=== PATIENT | female | born 1950 | race Caucasian/White ===

== ENCOUNTER → 2019-07-09 09:10 | Outpatient (CLI) | payer OTHER, SELFPAY ==
--- NOTE | ~2019-07-09 | XR_ITS ---
XR chest 2V DATE: 07/09/2019 09:37 INDICATION: Pulmonary nodule TECHNIQUE: PA and lateral views COMPARISON: 11/25/2015 2 view chest FINDINGS: Moderate bilateral hyperinflation. No pulmonary infiltrate or consolidation, pleural effusi on or pulmonary vascular congestion or pneumothorax is detected. Normal heart size. Small hiatal hernia. IMPRESSION: Moderate hyperinflation; no active cardiopulmonary disease or significant change since Reviewed, dictated and finalized at location A. RN TO VENDOR IMPRESSION: Moderate hyperinflation; no active cardiopulmonary disease or signi ficant change since 11/25/2015
== END ==
PROVIDERS: PCP Emergency Medicine; Visit Provider Emergency Medicine
DX: R91.1 Solitary pulmonary nodule (principal); R91.8 Other nonspecific abnormal finding of lung field
CPT/HCPCS: 71046

== ENCOUNTER → 2020-02-04 14:53 | Outpatient (CLI) | payer OTHER, SELFPAY ==
--- NOTE | ~2020-02-04 | MM_ITS ---
EXAMINATION: MM screening benjamin BI w melita HISTORY: Screening mammogram, family history of breast cancer in her daughter. TECHNIQUE: Craniocaudal and mediolateral oblique 3-D tomosynthesis images were obtained and synthetic 2-D images were generated. CAD analysis was submitted and interpreted. COMPARISON: 12/08/2018, 11/29/2016, 11/28/2015 BREAST PARENCHYMAL COMPOSITION: There are scattered areas of fibroglandular density. FINDINGS: There is no evidence of suspicious mass, calcification, or architectural distortion to sugg est malignancy in either breast. There has been no suspicious interval change. IMPRESSION: 1. No mammographic evidence of malignancy. 2. Recommend routine screening mammography in one year. BI-RADS Category 1: Negative Reviewed, dictated and finalized at location A.
== END ==
PROVIDERS: PCP Emergency Medicine; Visit Provider Emergency Medicine
DX: Z12.31 Encounter for screening mammogram for malignant neoplasm of breast (principal)
CPT/HCPCS: 77063; 77067

== ENCOUNTER → 2020-08-04 12:28 | Outpatient (CLI) | payer OTHER, SELFPAY ==
--- NOTE | ~2020-08-04 | DEXA_ITS ---
Bone Density Report Name: Fay Ovalle Age: 69 Sex: Female Ethnicity: White Date of : 1950 Indication: osteopenia; monitoring treatment; parental hip fracture; height loss; postmenopausal Referring Provider: LEONARDA MARCUS Study: Bone densitometry was performed. Exam Date: August 04, 2020 Accession number: [id number] Bone Density: Region BMD T-score Z-score Classification AP Spine (L1-L4) 0.866 -1.6 0.6 Osteopenia Femoral Neck (Left) 0.572 -2.5 -0.6 Osteoporosis Total Hip (Left) 0.725 -1.8 -0.2 Osteopenia Femoral Neck (Right) 0.591 -2.3 -0.4 Osteopenia Total Hip (Right) 0.667 -2.3 -0.7 Osteopenia Total Hip Mean 0.696 -2.1 -0.5 Osteopenia World Health Organization criteria for BMD impression classify patients as: Normal (T-score at or above -1.0), Osteopenia (T-score between -1.0 and -2.5), or Osteoporosis (T-score at or below -2.5). 10-year Fracture Risk: FRAX not reported because: Some T-score for Spine Total or Hip Total or Femoral Neck at or below -2.5 Treated for osteoporosis Previous Exams: Region Exam Age BMD T-score BMD Change BMD Change Date g/cm2 vs Baseline vs Previous AP Spine(L1-L4) 08/04/2020 69 0.866 -1.6 0.091* 0.053* 04/15/2018 67 0.813 -2.1 0.038* 0.038* 04/13/2016 65 0.775 -2.5 Total Hip(Left) 08/04/2020 69 0.725 -1.8 0.035* 0.037* 04/15/2018 67 0.688 -2.1 -0.003 -0.003 04/13/2016 65 0.690 -2.1 Total Hip(Right) 08/04/2020 69 0.667 -2.3 0.016 0.021 04/15/2018 67 0.646 -2.4 -0.005 -0.005 04/13/2016 65 0.650 -2.4 *Denotes significance at 95% confidence level, LSC for AP Spine = 0.022 g/cm2, LSC for Total Hip = 0.027 g/cm2 Clinical Information Provided by Patient: Parent has had a hip fracture Is being treated for osteoporosis Has used the following medications: Fosamax (i.e. alendronate), Vitamin D, Calcium, MTV Patient maximum height was 60 Menopause Age: 47 Drinks caffeinated beverages Onset of menses at age 10 Number of children 6 Impression: The patient has osteoporosis, based on the Left Femoral Neck T-score. The patient has risk factors, including: parental hip fracture. No significant bone loss was observed. Discussion: PATIENT UNDER TREATMENT WITH NO SIGNIFICANT BMD LOSS SINCE LAST EXAM. In an untreated patient, BMD typically declines with age. A lack of decl
== END ==
PROVIDERS: PCP Emergency Medicine; Visit Provider Emergency Medicine
DX: M81.0 Age-related osteoporosis without current pathological fracture (principal); M85.89 Other specified disorders of bone density and structure, multiple sites
CPT/HCPCS: 77080

== ENCOUNTER → 2020-10-12 10:48 | Outpatient (CLI) | payer OTHER, SELFPAY ==
--- NOTE | ~2020-10-12 | XR_ITS ---
EXAMINATION: XR shoulder RT min 2V EXAM DATE: 10/12/2020 11:14 INDICATION: Right shoulder pain, intermittent. States ran into door frame a few weeks ago. TECHNIQUE: The following right shoulder projections obtained: frontal projection with internal rotati on, frontal projection with external rotation, Grashey, and axillary (4+ views). There is no prior s tudy for comparison. FINDINGS: No evidence of right shoulder rotator cuff calcific tendinosis. There is moderate glenoh umeral, mild acromioclavicular joint primary osteoarthritis. There are no acute fractures or dislocat ions identified. There is no subcutaneous gas. The soft tissue is unremarkable. There are no radi opaque foreign bodies. IMPRESSION: Moderate right glenohumeral osteoarthritis. Reviewed, dictated and finalized at location B.
== END ==
PROVIDERS: PCP Emergency Medicine; Visit Provider Emergency Medicine
DX: M25.511 Pain in right shoulder (principal); M19.011 Primary osteoarthritis, right shoulder
CPT/HCPCS: 73030

== ENCOUNTER 2021-03-29 17:49 | Emergency (ER) | payer OTHER, SELFPAY ==
--- NOTE | ~2021-03-29 | XR_ITS ---
EXAMINATION: XR foot RT min 3V DATE: 03/29/2021 18:01 INDICATION: Right foot pain TECHNIQUE: Dorsoplantar, lateral, and 2 oblique views of the right foot were obtained. COMPARISON: None. FINDINGS: There is no fracture, dislocation, or subluxation. There is mild osteoarthritis of multiple interphalangeal joints. The soft tissues are unremarkable. Posterior and plantar calcaneal enthesoph ytes are noted. IMPRESSION: 1. No acute osseous abnormality. Reviewed, dictated and finalized at location A.
--- NOTE | 2021-03-29 17:51 | ED.LOWEXIN ---
HPI - Extremity Injury (Lower) General Chief Complaint: Extremity Injury, Lower Stated Complaint: INJURED R FOOT Time Seen by Provider: 03/29/21 17:51 Source: patient, family and RN notes reviewed History of Present Illness HPI Narrative: Patient is a 70-year-old female who presents the urgent care with her spouse with complaints of right foot pain. Patient states that approximately a week and a half ago she stepped off a curb, twisting her right foot. Patient states that weightbearing exacerbates her pain but she has been walking the last week and a half on the foot. Patient denies of other injuries from the incident. States that she has been taking ibuprofen intermittently for the pain. No other acute complaints. No acute distress noted. Patient and spouse aware of the plan of care. Some parts of this dictation were generated by voice recognition software and may contain typographical and/or grammatical inaccuracies. Related Data Home Medications Medication Instructions Recorded Confirmed aspirin 325 mg tablet 325 mg PO DAILY 07/20/19 cholecalciferol (vitamin D3) 50 2,000 unit PO DAILY 07/20/19 mcg (2,000 unit) tablet loratadine 5 mg-pseudoephedrine ER 1 tablet PO Q12H 07/20/19 120 mg tablet,extended release,12hr multivitamin 1 tablet PO .COMPLEX 07/20/19 Allergies Allergy/AdvReac Type Severity Reaction Status Date / Time codeine Allergy Unknown unknown Verified 12/14/20 10:54 iodine Allergy Unknown unknown Verified 12/14/20 10:54 Review of Systems Review of Systems: CONSTITUTIONAL: Denies fever, chills, or sweats. EYES: Denies visual changes, redness, or discharge. ENT: Denies rhinorrhea, congestion, sore throat, or otalgia. CARDIOVASCULAR: Denies chest pain, palpitations, or edema. RESPIRATORY: Denies cough or dyspnea. GASTROINTESTINAL: Denies abdominal pain, nausea, vomiting, or diarrhea. GENITOURINARY: Denies dysuria or hematuria. SKIN: Denies rash or itching. MUSCULOSKELETAL: Reports of right foot pain due to injury NEUROLOGIC: Denies headache, numbness, or weakness. All other systems reviewed are negative, except as documented in HPI. [facility] Past Medical History Medical History (Updated 03/29/21 @ 18:11 by SOPHIE Hansen) HLD (hyperlipidemia) Hypertension Osteoporosis Family History Family History Mother Family history of chronic obstructive pulmonary disease, Onset Age: 87 Family history of dementia, Onset Age: 87 Sibling Family history of chronic obstructive pulmonary disease Social History Social History Smoking status: Never smoker Alcohol intake: never Comments At the time of my signature, I reviewed and agree with the nursing past medical, surgical, social, and family history. There is no relevant family history pertinent to the patient complaint. Exam Narrative: GENERAL: This is a well-nourished, well-developed patient, in no apparent distress. HEAD: normocephalic, atraumatic. EYES: PERRL. Sclera clear/white. Vision is grossly intact. EARS: External ears normal NOSE: External nose normal with no obvious nasal discharge, nares without redness, no rhinorrhea. THROAT: Mucous membranes moist NECK: Neck supple CARDIOVASCULAR: Regular rate and rhythm without murmurs, gallops, or rubs. RESPIRATORY: Clear to auscultation. Breath sounds equal bilaterally. No wheezes, rales, or rhonchi. SKIN: warm, intact with no suspicious lesions or rash, good texture and turgor. NEURO: awake, alert, and oriented to person, place and time. There were no obvious focal neurologic abnormalities. EXTREMITIES: No obvious deformity noted to the right foot. No evidence of erythema, edema or ecchymosis. Positive strong right pedal pulse with capillary refill less than 2 seconds. Range of motion to right lower extremity within normal limits. Pain exacerbated with weightbe
[2021-03-29 18:12] VITALS: BP 182/92; PULSE 96; RESP 16; TEMP 36.3; O2SAT 99
== END 2021-03-29 18:16 | disposition home or self-care (01) ==
PROVIDERS: Emergency Provider Nurse Practitioner Family; PCP Emergency Medicine
DX: M79.671 Pain in right foot (principal); E78.5 Hyperlipidemia, unspecified; I10 Essential (primary) hypertension; M81.0 Age-related osteoporosis without current pathological fracture; Z79.82 Long term (current) use of aspirin
CPT/HCPCS: 73630; 99213; G0463

== ENCOUNTER → 2021-04-13 15:04 | Outpatient (CLI) | payer OTHER, SELFPAY ==
--- NOTE | ~2021-04-13 | MM_ITS ---
EXAMINATION: MM screening benjamin BI w melita HISTORY: Screening TECHNIQUE: Craniocaudal and mediolateral oblique 3-D tomosynthesis images were obtained and synthetic 2-D images were generated. CAD analysis was submitted and interpreted. COMPARISON: Comparison to multiple prior studies sequentially, with oldest reviewed study dated 11/27. BREAST PARENCHYMAL COMPOSITION: There are scattered areas of fibroglandular density. FINDINGS: There is no evidence of suspicious mass, calcification, or architectural distortion to sugg est malignancy in either breast. There has been no suspicious interval change. IMPRESSION: 1. No mammographic evidence of malignancy. 2. Recommend routine screening mammography in one year. BI-RADS Category 1: Negative Reviewed, dictated and finalized at location A.
== END ==
PROVIDERS: PCP Emergency Medicine; Visit Provider Emergency Medicine
DX: Z12.31 Encounter for screening mammogram for malignant neoplasm of breast (principal)
CPT/HCPCS: 77063; 77067

== ENCOUNTER 2021-08-01 14:12 | Outpatient (CLI) | payer OTHER, SELFPAY ==
--- NOTE | ~2021-08-01 | US_ITS ---
EXAMINATION:US venous doppler LE RT INDICATION:Right calf pain for 2 weeks TECHNIQUE: Multiple grayscale, color flow and Doppler images of the right lower extremity deep venous systems were obtained and reviewed. COMPARISON:No prior studies for comparison. FINDINGS: The common femoral, superficial femoral and popliteal veins demonstrate normal respiratory variation, augmentation and compressibility. Color flow is also seen within the posterior tibial, pe roneal, greater saphenous and profunda veins. IMPRESSION: 1: No lower extremity deep venous thrombosis. Reviewed, dictated and finalized at location B. RGLASS PRODUCT TESTER
--- NOTE | ~2021-08-01 | XR_ITS ---
EXAMINATION: XR knee RT 2V EXAM DATE: 08/01/2021 14:46 INDICATION: pain and swelling in knee, reports injury 10 yrs ago . TECHNIQUE: Frontal and lateral projections of the right knee. There is no prior study for compariso n. FINDINGS: Small right patellar enthesopathy. No sizable joint effusion. There are no acute fractures or dislocations identified. There is no subcutaneous gas. The soft tissue is unremarkable. There are no radiopaque foreign bodies. Joint spaces are maintained. IMPRESSION: Small suprapatellar enthesopathy. Otherwise unremarkable exam. Reviewed, dictated and finalized at location A. CUTTER
== END 2021-08-01 14:13 | disposition home or self-care (01) ==
PROVIDERS: PCP Emergency Medicine; Visit Provider Emergency Medicine
DX: M79.661 Pain in right lower leg (principal); M76.9 Unspecified enthesopathy, lower limb, excluding foot
CPT/HCPCS: 73560; 93971

== ENCOUNTER 2021-10-10 15:50 | Emergency (ER) | payer OTHER, SELFPAY ==
--- NOTE | ~2021-10-10 | XR_ITS ---
X EXAM: XR hand LT min 3V HISTORY: PAIN ulnar side Lt hand, prox 5th metacarpal;onset x 1.5 wks COMPARISON: None available FINDINGS: Decreased mineralization. Subtle transverse sclerosis in the distal radius. No lytic or bl astic lesion. Scattered degenerative changes, moderate at the radiocarpal joint. No erosion or perios teal change. Soft tissues within normal limits. IMPRESSION: Possible nondisplaced distal left radial fracture, correlate with point tenderness. No other acute osseous finding in the left hand. Reviewed, dictated and finalized at location K. IMPRESSION: Possible nondisplaced distal left radial fracture, correlate with point tendern ess. No other acute osseous finding in the left hand.
[2021-10-10 15:55] VITALS: BP 149/77; PULSE 91; RESP 16; TEMP 36.5; O2SAT 99
--- NOTE | 2021-10-10 15:55 | ED.UPPEXIN ---
HPI - Extremity Injury (Upper) General Chief Complaint: Extremity Injury, Upper Stated Complaint: INJURED L HAND Time Seen by Provider: 10/10/21 15:55 Source: patient and RN notes reviewed Mode of arrival: ambulatory Limitations: no limitations History of Present Illness HPI narrative: 71-year-old female presents to the [facility] with complaints of left hand pain. Patient states approximately a week and a half ago she was pounding on a butter knife and the counter to break apart some meat. Bruising swelling noted to the fifth metacarpal. Full range of motion. Capillary refill under 2 seconds, sensation intact 5 fingers. No snuffbox tenderness. No radial or ulnar tenderness. Tenderness just along the fifth metacarpal Related Data Home Medications Medication Instructions Recorded Confirmed aspirin 325 mg tablet 325 mg PO DAILY 07/20/19 10/10/21 cholecalciferol (vitamin D3) 50 2,000 unit PO DAILY 07/20/19 10/10/21 mcg (2,000 unit) tablet loratadine 5 mg-pseudoephedrine ER 1 tablet PO Q12H 07/20/19 10/10/21 120 mg tablet,extended release,12hr multivitamin 1 tablet PO .COMPLEX 07/20/19 10/10/21 alendronate 70 mg PO DAILY 10/10/21 10/10/21 Allergies Allergy/AdvReac Type Severity Reaction Status Date / Time codeine Allergy Unknown unknown Verified 10/10/21 15:59 iodine Allergy Unknown unknown Verified 10/10/21 15:59 Review of Systems Review of Systems: All systems reviewed & are unremarkable except as noted in HPI and below Constitutional: Constitutional: Reports no additional constitutional complaints, Denies chills and Denies fever(s) Eyes: Eyes: Reports no additional eye complaints ENT: Reports system reviewed and no additional complaints, except as documented Cardiovascular: Cardiovascular: Reports no additional cardiovascular complaints Respiratory: Respiratory: Reports no additional respiratory complaints Gastrointestinal: Gastrointestinal: Reports no additional gastrointestinal complaints Musculoskeletal: Musculoskeletal: Reports as per HPI Comments: Left fifth metacarpal pain and bruising Integumentary/Breasts: Skin/Breast: Reports system reviewed and no additional complaints, except as docu Neurologic: Reports system reviewed and no additional complaints, except as documented Psychiatric: Psychiatric: Reports no additional psychiatric complaints Allergic/Immunologic: Allergic/Immunologic: Reports no additional allergic/immunologic complaints [facility] Past Medical History Medical History Acquired stenosis of external ear canal, bilateral Acute pain of left hip Benign paroxysmal positional vertigo due to bilateral vestibular disorder Body mass index [BMI] 26.0-26.9, adult (03/25/17) Dental abscess Excessive cerumen in both ear canals GERD without esophagitis HLD (hyperlipidemia) Hyperglycemia Hypertension Lung granuloma Osteoporosis Post-menopause Pulmonary nodule Rash Tachycardia, paroxysmal Unspecified injury of right wrist, hand and finger(s), initial encounter Wrist pain, left Yeast infection Family History Family History Mother Family history of chronic obstructive pulmonary disease, Onset Age: 87 Family history of dementia, Onset Age: 87 Sibling Family history of chronic obstructive pulmonary disease Social History Social History Smoking status: Never smoker Alcohol intake: never Comments At the time of my signature, I reviewed and agree with the nursing past medical, surgical, social, and family history. There is no relevant family history pertinent to the patient complaint. Exam Const: General: healthy appearing, no acute distress and alert Nutritional Appearance: well nourished Orientation/consciousness: patient oriented x3 Limitations: no limitations HENMT: Head: normal to inspection Ear
== END 2021-10-10 16:28 | disposition home or self-care (01) ==
PROVIDERS: Emergency Provider Nurse Practitioner; PCP Emergency Medicine
DX: S60.222A Contusion of left hand, initial encounter (principal); I10 Essential (primary) hypertension; Z79.82 Long term (current) use of aspirin; E78.5 Hyperlipidemia, unspecified; W22.09XA Striking against other stationary object, initial encounter
CPT/HCPCS: 73130; 99213; G0463

== ENCOUNTER → 2022-04-18 13:32 | Outpatient (CLI) | payer OTHER, SELFPAY ==
--- NOTE | ~2022-04-18 | XR_ITS ---
EXAMINATION: [id number] INDICATION: Left-sided rib pain after fall TECHNIQUE: A frontal view of the chest and 3 views of the left ribs were obtained. COMPARISON: 07/09/2019 FINDINGS: The lungs are free of acute opacities. No pleural effusion or pneumothorax. The cardiomedia stinal silhouette is normal.. There are nondisplaced fractures at the anterolateral aspects of the le ft ninth and 10th ribs. IMPRESSION: 1. Nondisplaced fractures at the anterolateral aspects of the left ninth and 10th ribs. 2. No acute cardiopulmonary abnormality. Reviewed, dictated and finalized at location B. RY MACHINE MECHANIC IMPRESSION: 1. Nondisplaced fractures at the anterolateral aspects of the left ninth and 10 th ribs. 2. No acute cardiopulmonary abnormality.
== END ==
PROVIDERS: PCP Emergency Medicine; Visit Provider Emergency Medicine
DX: R07.81 Pleurodynia (principal); S22.42XA Multiple fractures of ribs, left side, initial encounter for closed fracture
CPT/HCPCS: 71101

== ENCOUNTER 2022-08-11 08:44 | Emergency (ER) | payer OTHER, SELFPAY ==
--- NOTE | ~2022-08-11 | XR_ITS ---
EXAMINATION: XR chest 2V DATE: 08/11/2022 09:23 INDICATION: Shortness of breath. TECHNIQUE: Frontal and lateral views of the chest were obtained. COMPARISON: Chest 2 views 07/09/2019, chest CT 01/02/2006 FINDINGS: There is mild atelectasis at left lung base. No pleural effusion or pneumothorax. The heart size is normal. Calcified mediastinal lymph nodes are consistent with old granulomatous disease. The re is a small hiatal hernia. IMPRESSION: 1. Mild atelectasis at left lung base. 2. Small hiatal hernia. Reviewed, dictated and finalized at location A. UNLOADER
--- NOTE | 2022-08-11 08:53 | ED.URI ---
HPI - URI/Sore Throat General Chief Complaint: Upper Respiratory Infection Stated Complaint: CONGESTION Time Seen by Provider: 08/11/22 09:08 Source: patient and RN notes reviewed Mode of arrival: ambulatory Limitations: no limitations History of Present Illness HPI Narrative: 71-year-old female presents concern for 2 week history chest congestion, cough, situational shortness of breath, nasal congestion, rhinorrhea. Reports she has been taking Mucinex and ?cold pills? without relief. Patient does not have history of COPD, emphysema, tobacco use, asthma. She took a negative COVID test at the beginning of her symptoms. She denies known sick contacts MD elicited complaint: cough and nasal congestion Related Data Home Medications Medication Instructions Recorded Confirmed aspirin 325 mg tablet 325 mg PO DAILY 07/20/19 10/10/21 cholecalciferol (vitamin D3) 50 2,000 unit PO DAILY 07/20/19 10/10/21 mcg (2,000 unit) tablet multivitamin (Once Daily tablet) 1 tablet PO .COMPLEX 07/20/19 10/10/21 Allergies Allergy/AdvReac Type Severity Reaction Status Date / Time codeine Allergy Unknown unknown Verified 08/11/22 08:56 iodine Allergy Unknown unknown Verified 08/11/22 08:56 Review of Systems Review of Systems: CONSTITUTIONAL: Reports malaise. Denies fever EYES: Denies visual changes, redness, or discharge. ENT: Reports rhinorrhea, congestion. Denies sinus pain, otalgia and sore throat. CARDIOVASCULAR: Denies chest pain, palpitations, or edema. RESPIRATORY: Reports cough, chest congestion, dyspnea. GASTROINTESTINAL: Denies abdominal pain, nausea, vomiting, diarrhea SKIN: Denies rash or itching. MUSCULOSKELETAL: Reports myalgia. NEUROLOGIC: Denies headache. All systems reviewed & are unremarkable except as noted in HPI and below PMFSH Past Medical History Medical History Acquired stenosis of external ear canal, bilateral Acute pain of left hip Benign paroxysmal positional vertigo due to bilateral vestibular disorder Body mass index [BMI] 26.0-26.9, adult (03/25/17) Dental abscess Excessive cerumen in both ear canals GERD without esophagitis HLD (hyperlipidemia) Hyperglycemia Hypertension Lung granuloma Osteoporosis Post-menopause Pulmonary nodule Rash Tachycardia, paroxysmal Unspecified injury of right wrist, hand and finger(s), initial encounter Wrist pain, left Yeast infection Family History Family History Mother Family history of chronic obstructive pulmonary disease, Onset Age: 87 Family history of dementia, Onset Age: 87 Sibling Family history of chronic obstructive pulmonary disease Social History Social History Smoking status: Never smoker Alcohol intake: never Comments At time of signature, agree with nursing past medical, surgical, social and family history. There is no relevant family history pertinent to the presenting complaint Exam Narrative: GENERAL: Nontoxic-appearing and in no acute distress. HEAD: Normocephalic EYES: PERRLA, conjunctivae clear ENT: Nares clear, turbinates edematous and erythematous, sinus tenderness. Mucous membranes moist. TM pearly hernandez with dull light reflex bilaterally; no tragal tenderness. Oropharynx not erythematous without lesions. Tonsils not enlarged and without exudate, no drooling, no hoarseness, no trismus, uvula midline. NECK: Supple. No lymphadenopathy CHEST: Expiratory wheeze, scattered rhonchi, breath sounds equal. No rales, or stridor. No respiratory distress, speaks in full sentences. HEART: Regular rate and rhythm. No murmur heard. SKIN: Warm, dry, no rash. NEURO: Alert and oriented x3. PSYCH: Normal mood and affect Course Course Emergency Course: Patient is aware of diagnosis, understands and agrees to treatment plan. Anticipatory guidance given. Patient agrees t
[2022-08-11 08:54] VITALS: BP 164/81; PULSE 103; RESP 16; TEMP 36.9; O2SAT 96
[2022-08-11] MEDS: ALBUTEROL SULFATE NEB 2.5 MG/3 ML INH INHALATION (09:24)
[2022-08-11] MEDS: IPRATROPIUM BR 0.02% INH SOLN 0.5 MG/2.5 ML VIAL INHALATION (09:24)
== END 2022-08-11 09:53 | disposition home or self-care (01) ==
PROVIDERS: Emergency Provider Nurse Practitioner; PCP Emergency Medicine
DX: J40 Bronchitis, not specified as acute or chronic (principal); E78.5 Hyperlipidemia, unspecified; I10 Essential (primary) hypertension
CPT/HCPCS: 71046; 94640; 99213; G0463

== ENCOUNTER → 2022-08-17 11:09 | Outpatient (CLI) | payer OTHER, SELFPAY ==
--- NOTE | ~2022-08-17 | XR_ITS ---
Clinical Indication: Upper respiratory infection PA and lateral views of the chest: Comparison: 08/11/2022 Findings: The lungs are clear, without evidence of focal consolidation or pleural effusion. Cardiome diastinal silhouette is within normal limits. Bones and soft tissues are unremarkable. Impression: Normal chest. Reviewed, dictated and finalized at [facility]. RNEY GENERAL Impression: Normal chest.
== END ==
PROVIDERS: PCP Emergency Medicine; Visit Provider Emergency Medicine
DX: J06.9 Acute upper respiratory infection, unspecified (principal)
CPT/HCPCS: 71046

== ENCOUNTER → 2023-01-07 13:05 | Outpatient (CLI) | payer OTHER, SELFPAY ==
--- NOTE | ~2023-01-07 | MM_ITS ---
EXAMINATION: MM screening benjamin BI w melita HISTORY: Screening mammogram TECHNIQUE: Craniocaudal and mediolateral oblique 3-D tomosynthesis images were obtained and synthetic 2-D images were generated. CAD analysis was submitted and interpreted. COMPARISON: 04/2021, 02/04/2020, 12/08/2018 bilateral screening mammogram examinations BREAST PARENCHYMAL COMPOSITION: There are scattered areas of fibroglandular density. FINDINGS: There is no evidence of suspicious mass, calcification, or architectural distortion to sugg est malignancy in either breast. There has been no suspicious interval change. IMPRESSION: 1. No mammographic evidence of malignancy. 2. Recommend routine screening mammography in one year. BI-RADS Category 1: Negative Reviewed, dictated and finalized at location A.
== END ==
PROVIDERS: PCP Emergency Medicine; Visit Provider Emergency Medicine
DX: Z12.31 Encounter for screening mammogram for malignant neoplasm of breast (principal)
CPT/HCPCS: 77063; 77067

== ENCOUNTER → 2023-01-30 09:56 | Outpatient (CLI) | payer OTHER, SELFPAY ==
--- NOTE | ~2023-01-30 | DEXA_ITS ---
Bone Density Report Name: CHARU BOUCHER Age: 72 Sex: Female Ethnicity: White Date of : 1950 Indication: osteopenia; monitoring treatment; parental hip fracture; height loss; postmenopausal Referring Provider: LEONARDA MARCUS Study: Bone densitometry was performed. Exam Date: January 30, 2023 Accession number: [id number] Bone Density: Region BMD T-score Z-score Classification AP Spine (L1-L4) 0.905 -1.3 1.1 Osteopenia Femoral Neck (Left) 0.601 -2.2 -0.2 Osteopenia Total Hip (Left) 0.738 -1.7 0.1 Osteopenia Femoral Neck (Right) 0.577 -2.4 -0.4 Osteopenia Total Hip (Right) 0.667 -2.3 -0.5 Osteopenia Total Hip Mean 0.703 -2.0 -0.2 Osteopenia World Health Organization criteria for BMD impression classify patients as: Normal (T-score at or above -1.0), Osteopenia (T-score between -1.0 and -2.5), or Osteoporosis (T-score at or below -2.5). 10-year Fracture Risk: FRAX not reported because: Treated for osteoporosis Previous Exams: Region Exam Age BMD T-score BMD Change BMD Change Date g/cm2 vs Baseline vs Previous AP Spine(L1-L4) 01/30/2023 72 0.905 -1.3 0.130* 0.039* 08/04/2020 69 0.866 -1.6 0.091* 0.053* 04/15/2018 67 0.813 -2.1 0.038* 0.038* 04/13/2016 65 0.775 -2.5 Total Hip(Left) 01/30/2023 72 0.738 -1.7 0.048* 0.013 08/04/2020 69 0.725 -1.8 0.035* 0.037* 04/15/2018 67 0.688 -2.1 -0.003 -0.003 04/13/2016 65 0.690 -2.1 Total Hip(Right) 01/30/2023 72 0.667 -2.3 0.016 0.000 08/04/2020 69 0.667 -2.3 0.016 0.021 04/15/2018 67 0.646 -2.4 -0.005 -0.005 04/13/2016 65 0.650 -2.4 *Denotes significance at 95% confidence level, LSC for AP Spine = 0.022 g/cm2, LSC for Total Hip = 0.027 g/cm2 Clinical Information Provided by Patient: Parent has had a hip fracture Is being treated for osteoporosis Has used the following medications: Fosamax (i.e. alendronate), Vitamin D, Calcium, MTV Patient maximum height was 60.0 Menopause Age: 47 Drinks caffeinated beverages Onset of menses at age 10 Number of children 6 Impression: The patient has low bone mass, based on the Right Femoral Neck T-score. The patient has risk factors, including: parental hip fracture. No significant bone loss was observed. Discussion: PATIENT UNDER TREATMENT WITH NO S
== END ==
PROVIDERS: PCP Emergency Medicine; Visit Provider Emergency Medicine
DX: M81.0 Age-related osteoporosis without current pathological fracture (principal); M85.89 Other specified disorders of bone density and structure, multiple sites; Z78.0 Asymptomatic menopausal state; E55.9 Vitamin D deficiency, unspecified
CPT/HCPCS: 77080

== ENCOUNTER 2023-02-22 17:18 | Emergency (ER) | payer OTHER, SELFPAY ==
[2023-02-22 17:31] VITALS: BP 164/80; PULSE 92; RESP 16; TEMP 36.6; O2SAT 98
--- NOTE | 2023-02-22 17:50 | ED.EYEPROB ---
HPI - Eye Problem General Chief complaint: Eye Problems Stated complaint: EYE REDNESS Time Seen by Provider: 02/22/23 17:50 Source: patient, RN notes reviewed and old records reviewed Mode of arrival: ambulatory Limitations: no limitations History of Present Illness HPI Narrative: 72 year old female presents to [facility] with complaints of redness to her left eye and watering with increased redness throughout the day. Patient reports discomfort to her eye but denies any sharp pain or any changes in her vision. Patient reports that she called her eye doctor and soonest she could be seen is Saturday. Patient reports that she has had bilateral cataract surgery in the past. Patient's visual acuity without cglasses 20/40 both eyes. . chief complaint: eye redness Onset (ago): hour(s) (this morning) Duration: other (since awakening this morning) Location: left eye Severity scale (1-10): 8 If Pain, Quality: aching Treatments Prior to Arrival: none Related Data Home Medications Medication Instructions Recorded Confirmed aspirin 325 mg tablet 325 mg PO DAILY 07/20/19 02/22/23 cholecalciferol (vitamin D3) 50 2,000 unit PO DAILY 07/20/19 02/22/23 mcg (2,000 unit) tablet multivitamin (Once Daily tablet) 1 tablet PO .COMPLEX 07/20/19 02/22/23 Allergies Allergy/AdvReac Type Severity Reaction Status Date / Time codeine Allergy Unknown unknown Verified 02/22/23 17:25 iodine Allergy Unknown unknown Verified 02/22/23 17:25 Review of Systems Review of Systems: CONSTITUTIONAL: Denies fever, chills, or sweats. EYES: Denies visual changes,positive for redness left eye sclera redness, no discharge or changes in vision or any sharp pain, redness of sclera increased as day as progressed ENT: Denies rhinorrhea, congestion, sore throat, or otalgia. CARDIOVASCULAR: Denies chest pain, palpitations, or edema. RESPIRATORY: Denies cough or dyspnea. GASTROINTESTINAL: Denies abdominal pain, nausea, vomiting, or diarrhea. GENITOURINARY: Denies dysuria or hematuria. SKIN: Denies rash or itching. MUSCULOSKELETAL: Denies back pain, joint pain, or myalgia. NEUROLOGIC: Denies headache, numbness, or weakness. PSYCHIATRIC: Denies anxiety or depression. All systems reviewed & are unremarkable except as noted in HPI and below PMFSH Past Medical History Medical History (Updated 02/24/23 @ 22:40 by Mireya Dumont NP) Acquired stenosis of external ear canal, bilateral Acute pain of left hip Benign paroxysmal positional vertigo due to bilateral vestibular disorder Body mass index [BMI] 26.0-26.9, adult (03/25/17) Dental abscess Excessive cerumen in both ear canals GERD without esophagitis HLD (hyperlipidemia) Hyperglycemia Hypertension Lung granuloma Osteoporosis Post-menopause Pulmonary nodule Rash Tachycardia, paroxysmal Unspecified injury of right wrist, hand and finger(s), initial encounter Wrist pain, left Yeast infection Surgical History Surgical History (Updated 02/22/23 @ 18:01 by Mireya Dumont NP) H/O cataract removal with insertion of prosthetic lens bilateral H/O tubal ligation History of appendectomy History of colon resection 6 inches colon removed with appendectomy Family History Family History Mother Family history of chronic obstructive pulmonary disease, Onset Age: 87 Family history of dementia, Onset Age: 87 Sibling Family history of chronic obstructive pulmonary disease Social History Social History Smoking status: Never smoker Alcohol intake: never Lack of Transportation: No Lack of Food: Never True Concerned About Future Housing: No Difficulty Paying Gas/Electric Bills: No Difficulty Paying for Meds: No Currently Unemployed: No Education: High School Diploma/GED Difficulty w/ Childcare or Family Care: No Comments At time of signature, agree with damon
== END 2023-02-22 18:08 | disposition home or self-care (01) ==
PROVIDERS: Emergency Provider Registered Nurse; PCP Emergency Medicine
DX: H11.32 Conjunctival hemorrhage, left eye (principal); E78.5 Hyperlipidemia, unspecified; I10 Essential (primary) hypertension; Z79.82 Long term (current) use of aspirin
CPT/HCPCS: 99212; G0463

== ENCOUNTER 2023-08-27 08:04 | Outpatient (CLI) | payer OTHER, SELFPAY ==
--- NOTE | ~2023-08-27 | MR_ITS ---
MRI of the right shoulder Technique: Axial proton-density fat-sat images, coronal proton density fat-sat and T2 fat-sat images, and sagittal T1-weighted and T2 fat-sat images were acquired. Clinical History: Pain Findings: There is hdgi-ng-akpjknbg AC joint degenerative change. Coracoclavicular, coracoacromial, c oracohumeral ligaments appear intact. There is advanced supraspinatus and infraspinatus tendinosis, with possible minimal bursal surface fr aying of the distal supraspinatus tendon insertion. No high-grade partial or full-thickness tear evid ent. Subscapularis tendon is intact. Tendon of the long head of the biceps is probably intact, with i ntra-articular tendinosis. There is essentially circumferential degenerative labral tearing throughout the labrum. There is severe glenohumeral joint degenerative change. There is joint space narrowing with diffuse h igh-grade chondromalacia and inferomedial humeral head osteophyte. Moderate to large glenohumeral harshal nt effusion is present. There is an intramuscular ganglion cyst at the myotendinous junction region o f the infraspinatus muscle belly. No muscle atrophy or edema evident. No fluid distention of the suba cromial/subdeltoid bursa. Impression: Severe glenohumeral joint osteoarthritis with associated moderate to large glenohumeral joint effusio n. Circumferential degenerative labral tearing. Moderate AC joint degenerative change. Rotator cuff tendinosis with possible minimal bursal surface fraying of the distal supraspinatus tend on. No high-grade partial or full-thickness rotator cuff tear. Reviewed, dictated and finalized at [facility]. Impression: Severe glenohumeral joint osteoarthritis with associated moderate to large willa ohumeral joint effusion. Circumferential degenerative labral tearing. Moderate AC joint degenerative change. Rotator cuff tendinosis with possible minimal bursal surface fraying of the dis jeannie supraspinatus tendon. No high-grade partial or full-thickness rotator cuff tear.
== END 2023-08-27 08:05 ==
PROVIDERS: PCP Emergency Medicine; Visit Provider Emergency Medicine
DX: M19.011 Primary osteoarthritis, right shoulder (principal); M75.31 Calcific tendinitis of right shoulder; S43.431A Superior glenoid labrum lesion of right shoulder, initial encounter; X58.XXXA Exposure to other specified factors, initial encounter
CPT/HCPCS: 73221

== ENCOUNTER 2023-09-04 16:14 | Outpatient (CLI) | payer OTHER, SELFPAY ==
--- NOTE | ~2023-09-04 | XR_ITS ---
XR shoulder RT min 2V 09/04/2023 17:08 Indication: Right shoulder pain Procedure: 4 views right shoulder Comparison: 10/12/2020 Findings: There is severe right glenohumeral joint osteoarthritis which has progressed since prior ex amination. Osteopenia. Surrounding osseous structures are unremarkable. Visualized lung parenchyma is unremarkable. Impression: 1: Interval progression of severe right glenohumeral joint osteoarthritis. Reviewed, dictated and finalized at location [facility]. Impression: 1: Interval progression of severe right glenohumeral joint osteoarthritis.
== END 2023-09-04 16:15 ==
LOC: MICIMG 16:15
PROVIDERS: PCP Emergency Medicine; Visit Provider Orthopaedic Surgery
DX: M25.511 Pain in right shoulder (principal); M19.011 Primary osteoarthritis, right shoulder
CPT/HCPCS: 73030

== ENCOUNTER 2023-11-20 10:04 | Outpatient (CLI) | payer OTHER, SELFPAY ==
--- NOTE | 2023-11-20 11:08 | ECG_ITS ---
Test Date: 2023-11-20 11:15:45 Measurements Intervals [place] Rate: 72 P: 60 WI: 150 QRS: 17 QRSD: 93 T: 35 QT: 395 QTc: 435 Interpretive Statements SINUS RHYTHM WARNING: DATA QUALITY MAY AFFECT INTERPRETATION No previous ECG available for comparison Electronically Signed On 11-20-2023 11:40:41 CDT by Victorino Alvarenga M.D.
[2023-11-20 12:08] LABS: Basophils Percent Auto 0.6 % (0.2-1.2); Eosinophils Percent Auto 0.4 % (0-4.4); Hematocrit 38.1 % (37.0-47.0); Hemoglobin 12.3 g/dL (12.0-15.0); Immature Granulocyte Absolute 0.02 K/mm3 (0.00-0.031); Immature Granulocyte Percent A 0.3 % (0-0.5); Lymphocytes Absolute Auto 1.74 K/mm3 (0.9-3.2); Mean Corpuscular HGB Conc 32.3 g/dl (32-36); Mean Corpuscular Hemoglobin 30.6 pg (26-34); Mean Corpuscular Volume 94.8 fl (80-100); Mean Platelet Volume 9.1 fl (7.4-10.4); Monocytes Absolute Auto 0.5 K/mm3 (0.1-0.6); Monocytes Percent Auto 6.7 % (2.6-8.5); Neutrophils Absolute Auto 4.9 K/mm3 (1.3-6.7); Platelet Count Result 353 k/mm3 (150-375); Red Blood Count 4.02 M/mm3 (4.2-5.4); Red Cell Distribution Width 13.2 % (11.5-14.5); White Blood Count 7.3 K/mm3 (4.5-10.0)
[2023-11-20 13:18] LABS: MRSA (PCR) NOT DETECTED (NOT DETECTE)
== END 2023-11-20 10:05 | disposition home or self-care (01) ==
LOC: ANHSURGERY 10:05
PROVIDERS: PCP Emergency Medicine; Visit Provider Orthopaedic Surgery
DX: M19.011 Primary osteoarthritis, right shoulder (principal); I10 Essential (primary) hypertension
CPT/HCPCS: 36415; 85025; 87641; 93005

== ENCOUNTER 2023-12-16 00:04 | Day surgery (SDC) | payer OTHER, SELFPAY ==
[2023-11-20 10:10] VITALS: BMI 26.2
--- NOTE | 2023-11-20 10:38 | PC.NURSE ---
Report to the Outpatient Waiting Room, entrance under the green pavilion located off [facility], at time _1000 AM on date __12/16/23 . Planned Procedure Time: __1200 NOON . Time changes happen often and if your time is changed the preop area will call you the afternoon before. - You and your visitor will be asked to self-screen and do not enter if you have any COVID symptoms. - A mask is optional within the hospital at this time. Patients may have clear liquids (water, carbonated beverages, clear teas, apple juice) until 3 hours prior to surgery( 9:00 AM) with a maximum of 20 ounces. - No food from midnight until time of surgery - Infants may have breast milk until 4 hours before surgery, infant formula 6 hours prior to surgery. - Children will be allowed to drink immediately following surgery. If applicable, please bring a bottle or sippy cup to assist with drinking. Juice, water, soda, and popsicles are readily available. For infants on formula, please bring formula the day of surgery. Pacifiers are allowed. Take the following medications with a SIP of water the morning of surgery: ___AMLODIPINE,INHALER IF NEEDED DO NOT STOP ANY OF YOUR OTHER PRESCRIPTION MEDICATIONS PRIOR TO SURGERY ?EXCEPT THE FOLLOWING Medications to discontinue per physician ___HOLD IBUPROFEN 7 DAYS PRE OP PER DR BERG.LAST DOSE 12/08/23. MAY TAKE TYLENOL IF NEEDED FOR PAIN. HOLD ALL VITAMINS AND SUPPLEMENTS 3 DAYS PRE OP .LAST DOSE 12/12/23 Please no make-up, nail greek, hairspray, perfume, deodorant, or body powder the day of surgery. No jewelry (including any body piercings) or valuables the day of surgery, leave them at home. Please take a shower or bath the night before, or the morning of, surgery with an antibacterial soap. Wear comfortable, loose fitting clothing. Children are encouraged to wear pajamas. - Jewelry must be removed prior to entering the operating room. Rings and piercings that are not removed may be cut off. - The hospital will not accept responsibility for valuables. - Please leave all valuables, including medications, at home the day of surgery. If you are going home after surgery, a licensed line haul driver must drive you home. - NO public transportation without another adult if you receive anesthesia. - We recommend that an adult stay with you for 24 hours following discharge. - We also recommend that you do not drive, make important decision, drink alcoholic beverages, or take any drugs that were not prescribed by your health care provider for at least 24 hours after your discharge time. Follow any additional instructions given to you from your surgeon. If you or anyone in your household have experienced Covid symptoms in the past week, please notify your surgeon or the nurse liaison at the phone number below for possible testing. VERBAL AND WRITTEN instructions given to __PATIENT and asked if any additional questions and then verbalized understanding. Patient advised to call surgeon office or pre surgery nurse liaison [phone] if any additional questions.
[2023-11-20 11:04] VITALS: BP 170/72; PULSE 70; RESP 18; TEMP 36.7; O2SAT 98
[2023-12-16] VITALS (12 sets, daily range): BP systolic 128–176; BP diastolic 52–71; PULSE 80–107; RESP 12–20; TEMP 35.6–36.5; O2SAT 94–100
--- NOTE | ~2023-12-16 | XR_ITS ---
EXAMINATION: XR shoulder RT min 2V DATE: 12/16/2023 15:02 INDICATION: Post operative evaluation following right total shoulder arthroplasty TECHNIQUE: AP and transscapular Y views of the right shoulder were obtained. COMPARISON: None FINDINGS: Right total shoulder arthroplasty in near anatomic alignment. No fracture. Mild osteoarthritis at the right acromioclavicular joint. Expected small amount of soft tissue gas at the operative bed. Severe cervical and moderate to severe thoracic spondylosis. Mild streaky right basilar atelectasis. Calcif ied mediastinal lymph nodes consistent with old granulomatous disease. IMPRESSION: Right total shoulder arthroplasty negative for postoperative purposes. Reviewed, dictated and finalized at location A.
--- NOTE | 2023-12-16 09:40 | WPDHPUPDATE1 ---
History and Physical Update Update Date/Time: 12/16/23 09:40 History and Physical has been reviewed, including an updated exam of the patient. There are NO changes in the patient's condition. Risks, benefits, and alternatives have been discussed and questions answered. Patient agrees to proceed with procedure.
--- NOTE | 2023-12-16 11:30 | WPDANESEPPF ---
Anes - Initial Pre Proc Eval Procedure: Operation Date: 12/16/23 12:00 Proposed Procedures p Right Anatomic Total Shoulder Arthroplasty - Qamar Lane MD Date/Time: 12/16/23 11:30 Surgeon: Qamar Lane MD Pre Op Diagnosis: primary OA right shoulder Patient Data Age: 73 Gender: F Height: 1.5 m Weight: 59 kg Last Vital Signs Temp 36.7 C 11/20/23 11:04 Pulse 70 11/20/23 11:04 Resp 18 11/20/23 11:04 BP 170/72 H 11/20/23 11:04 Pulse Ox 98 11/20/23 11:04 O2 Del Method Room Air 11/20/23 11:04 Allergies Allergy/AdvReac Type Severity Reaction Status Date / Time codeine Allergy Severe Nausea and Verified 11/20/23 10:14 Vomiting iodine Allergy Unknown Other Verified 12/16/23 11:16 Home Medications Medication Instructions Recorded Confirmed Type cholecalciferol (vitamin D3) 50 2,000 unit PO DAILY 07/20/19 12/16/23 History mcg (2,000 unit) tablet inhalat.spacing dev,large mask #1 ea 08/11/22 11/21/23 Rx (BreatheRite Spacer and Mask, Adult) losartan 100 mg tablet See Rx Instructions .Route 08/05/23 12/16/23 Rx .COMPLEX #90 tabs pantoprazole 40 mg tablet,delayed See Rx Instructions .Route 08/05/23 12/16/23 Rx release .COMPLEX #90 tabs albuterol sulfate 90 mcg/actuation See Rx Instructions .Route 08/26/23 11/21/23 Rx aerosol inhaler .COMPLEX #8.5 ea alendronate 70 mg tablet See Rx Instructions .Route 08/26/23 12/16/23 Rx .COMPLEX #12 tabs amlodipine 5 mg tablet See Rx Instructions .Route 08/26/23 12/16/23 Rx .COMPLEX #90 tabs acetaminophen 650 mg 650 mg PO Q12H PRN Pain 11/20/23 12/16/23 History tablet,extended release (Tylenol Arthritis Pain) calcium 600 mg capsule 600 mg PO DAILY 11/20/23 12/16/23 History ibuprofen 600 mg tablet 600 mg PO Q6H PRN Pain 11/20/23 12/16/23 History wmboisww-gtt-rvnj-FA-Ca carb-vit K 1 tablet PO DAILY 11/20/23 12/16/23 History 18 mg iron-400 mcg-500 mg tablet (Women's One Daily) red yeast rice 600 mg capsule 600 mg PO DAILY 11/20/23 12/16/23 History vitamin E 400 unit tablet 400 mg PO DAILY 11/20/23 12/16/23 History aspirin 81 mg tablet,delayed 81 mg PO BID 14 days #28 tabs 12/16/23 Rx release Patient hx anesthesia problems: none Family hx anesthesia problems: none Results Review: All pre-operative results and documents have been reviewed as part of the pre-operative evaluation. [facility] Past Medical History Medical History Acquired stenosis of external ear canal, bilateral Acute pain of left hip Benign paroxysmal positional vertigo due to bilateral vestibular disorder Body mass index [BMI] 26.0-26.9, adult (03/25/17) Dental abscess Elevated cholesterol Excessive cerumen in both ear canals GERD without esophagitis HLD (hyperlipidemia) Hyperglycemia Hypertension Knee pain Leg pain Lung granuloma Osteoporosis Pain of right calf Post-menopause Pulmonary nodule Rash Rib pain on left side Shoulder pain Subconjunctival hemorrhage Tachycardia, paroxysmal Unspecified injury of right wrist, hand and finger(s), initial encounter Upper respiratory tract infection URI with cough and congestion Wrist pain, left Yeast infection Surgical History Surgical History H/O cataract removal with insertion of prosthetic lens bilateral H/O tubal ligation History of appendectomy History of colon resection 6 inches colon removed with appendectomy Family History Family History Mother Family history of chronic obstructive pulmonary disease, Onset Age: 87 Family history of dementia, Onset Age: 87 Sibling Family history of chronic obstructive pulmonary disease Social History Social History Smoking status: Never smoker Alcohol intake: never Do You Fee
[2023-12-16] MEDS: ACETAMINOPHEN 500 MG TABLET 1000 MG PO ×3 (11:43→23:28)
[2023-12-16] MEDS: LACTATED RINGERS 1,000 ML 30 ML IV CONT ×2 (12:00→14:46)
--- NOTE | 2023-12-16 12:15 | SUR.PREOP ---
1135-Dr. Lane office staff aware of area upper back between scapulas open-pt states used back [employer] worker and scratched it open. 1145-Dr. Lane her to examine pt skin area and states will proceed with procedure.
--- NOTE | 2023-12-16 12:16 | WPDANESPNB ---
Anes - Peripheral Nerve Block Date/Time: 12/16/23 12:16 I have discussed with the patient/family/POA the placement of a peripheral nerve block for post-operative pain management, including associated risks, benefits, complications, and side effects. Alternative methods of post-operative analgesia were detailed. Questions were solicited and answers provided to the satisfaction of the patient/family/POA. Time-Out: A pre-procedural Time-Out was completed immediately before starting the procedure and confirmed: Patient Identification, Site, Procedure, Patient Position and the Availability of Requisite Equipment. Clinical Indications: Acute post-operative pain management requested by the operative surgeon. Nerve Block Insertion Note Anes-nerve block: interscalene right Patient position: supine Skin prep: chlorhexidine Needle: 22 gauge, stimulating, insulated echogenic needle. Needle length: 50 mm Technique: ultrasound Injectate: bupivacaine 0.5% with epi 5 mcg/ml (20cc- no epi) Observations: tolerated well Complications: none Procedure start time:: 1205 Procedure end time:: 1208
[2023-12-16] MEDS: ceFAZolin 2 GM/D5W 50 ML 2 GM/50 ML BAG IVPB ×2 (12:42→20:18)
[2023-12-16] MEDS: SODIUM CHLORIDE 0.9% IV 38.7 ML, ROPivacaine HCL 1% 200 MG, KETOROLAC INJ (*BKC) 15 MG,... INFILTRATE (12:51)
[2023-12-16] MEDS: VANCOMYCIN HCL 1,000 MG VIAL 1000 MG TOPICAL (14:13)
--- NOTE | 2023-12-16 15:01 | P.OP_ITS ---
Procedure Note - Detailed Date of Procedure 12/16/23 Pre-op Diagnosis Primary osteoarthritis right shoulder Post-op Diagnosis Same Procedure Performed Anatomic total shoulder arthroplasty, right. Surgeon Qamar Lane MD Allopathic Doctor Amanda Ahn PA-C Anesthesia General Findings Good rotator cuff tissue. Moderate cyst anterior humeral metaphysis did not compromise implant fixation. Humeral head bone graft used to fill the cyst. Subscapularis tenotomy performed to protect the bone in that region. Description of Procedure Preoperative antibiotics were given. An interscalene block placed in the holding area. The patient was brought to the operating room and a general anesthetic was administered. He was carefully placed in the chair position. Head and neck, and bony prominences were carefully padded and positioned. The shoulder was prepped and draped in the usual sterile fashion. A longitudinal incision was created over the deltopectoral interval. The cephalic vein was identified and protected. It was retracted medially. The distal aspect was suture ligated. The biceps was released and later tenodesed to the pectoralis tendon. The exposure continued with a subscapularis tenotomy. The inferior capsule was exposed and the humeral head was delivered into the wound. An anatomic head cut was taken utilizing the external alignment jig. The cut protector was placed and attention was turned to the glenoid. For both humeral ligament was released. The anterior capsule partially excised superiorly and released inferiorly. The glenoid was excised along with the biceps. The capsule was released inferiorly including the triceps attachment. The posterior capsule was preserved. Anatomic landmarks on the glenoid were identified and the drill guide was placed slightly superior to match the anticipated humeral articulating area. The guide pin was placed followed by the one-step reaming to approximately 2-3 mm depth. The superior and inferior drill was used for the pegs. The bone was irrigated and prepared. The real component was cemented into position. Excess cement was carefully removed. Attention was turned back to the humerus. The opening Reamer was placed followed by the 0 broach. The cyst was decompressed from the area posterior to the lesser tuberosity, and bone grafted with bone from the humeral head. The real implant was inserted with excellent Press-Fit. The subscapularis tenotomy was repaired with multiple #5 and #2 Ethibond suture. The pain relieving injection was used in the periarticular tissues. The wound was irrigated. 1 g of vancomycin power was introduced into the wound. The deltopectoral interval was reapproximated with 2-0 Vicryl suture and the remaining skin 2-0 and 3-0 Stratafix suture. Steri- Strips were placed on the skin with a Mepilex bandage. Sling was applied and the patient extubated. An additional pain relieving cocktail was placed in the periarticular tissues during the procedure. Implants Shoulder innovations short stem humeral implant size 0. 42 x 16 mm humeral head. 20 mm diameter circular in line peg inset glenoid component. One batch of quick set antibiotic cement. Estimated Blood Loss 100 Drains No Packing No Pathology None sent Complications No immediate complications Condition Stable Disposition PACU [facility] Billing Surgery - Charge Forward: Surgery Billing
--- NOTE | 2023-12-16 16:12 | ADMGEN ---
This patient, Fay Ovalle, was admitted to [facility] Surg Room 329-01. Patient/family oriented to hospital policies and general routines including ID bracelet, bed and alarms, visiting hours, pain management, procedures, bathroom and other care routines, personal items, smoking policy, room service/diet, and visiting hours. Information on how to activate the Rapid Response Team has been discussed. Patient/Family are encouraged to report perceived risks to care and to ask questions if they do not understand what they are told or what they should do.
[2023-12-16] MEDS: SODIUM CHLORIDE 0.9% IV 1,000 ML 125 ML IV CONT (17:46)
[2023-12-16] MEDS: SENNA/DOCUSATE SODIUM TABLET 2 TAB PO (17:48)
[2023-12-16] MEDS: ASPIRIN 81 MG ENTERIC TABLET PO (20:16)
[2023-12-17 01:47] VITALS: BP 127/58; PULSE 84; RESP 16; TEMP 36.3; O2SAT 97
[2023-12-17] MEDS: ACETAMINOPHEN 500 MG TABLET 1000 MG PO ×2 (05:14→11:49)
[2023-12-17] MEDS: ceFAZolin 2 GM/D5W 50 ML 2 GM/50 ML BAG IVPB ×2 (05:15→11:49)
[2023-12-17 05:45] VITALS: BP 131/56; PULSE 72; RESP 16; TEMP 36.2; O2SAT 97
[2023-12-17 06:15] LABS: Basophils Percent Auto 0.2 % (0.2-1.2); Eosinophils Percent Auto 0.1 % (0-4.4); Hematocrit 31.2 % (37.0-47.0); Hemoglobin 10.2 g/dL (12.0-15.0); Immature Granulocyte Absolute 0.06 K/mm3 (0.00-0.031); Immature Granulocyte Percent A 0.5 % (0-0.5); Lymphocytes Absolute Auto 1.26 K/mm3 (0.9-3.2); Mean Corpuscular HGB Conc 32.7 g/dl (32-36); Mean Corpuscular Hemoglobin 30.4 pg (26-34); Mean Corpuscular Volume 93.1 fl (80-100); Monocytes Absolute Auto 1.1 K/mm3 (0.1-0.6); Monocytes Percent Auto 8.9 % (2.6-8.5); Neutrophils Absolute Auto 10.2 K/mm3 (1.3-6.7); Neutrophils Percent Auto 80.3 % (45.5-73.1); Platelet Count Result 282 k/mm3 (150-375); Red Blood Count 3.35 M/mm3 (4.2-5.4); Red Cell Distribution Width 13.1 % (11.5-14.5); White Blood Count 12.7 K/mm3 (4.5-10.0)
[2023-12-17 06:27] LABS: Anion Gap 9 mmol/L (4-12); Blood Urea Nitrogen 17 mg/dL (7-17); Calcium 8.6 mg/dL (8.4-10.2); Carbon Dioxide 22 mmol/L (22-30); Chloride 108 mmol/L (98-107); Estimated Glomerular Filt Rate 54; Glucose 116 mg/dL (65-110); Potassium 3.8 mmol/L (3.4-5.0); Sodium 139 mmol/L (137-145)
[2023-12-17 08:00] VITALS: BP 112/62; PULSE 83; RESP 16; TEMP 36.2; O2SAT 95
[2023-12-17] MEDS: SENNA/DOCUSATE SODIUM TABLET 2 TAB PO (08:41)
[2023-12-17] MEDS: ASPIRIN 81 MG ENTERIC TABLET PO (08:41)
[2023-12-17] MEDS: PANTOPRAZOLE 40 MG TABLET PO (08:41)
[2023-12-17] MEDS: polyethylene glycoL 3350 17 GM POWD.PACK PO (08:41)
[2023-12-17] MEDS: LOSARTAN POTASSIUM 100 MG TABLET PO (08:41)
[2023-12-17] MEDS: amLODIPine BESYLATE 5 MG TABLET PO (08:41)
--- NOTE | 2023-12-17 09:44 | WPDANESPN ---
Anes - Prog Note Post-Op Date/Time: 12/17/23 09:44 Cardiovascular status: normal Respiratory status: normal Airway patency: baseline Mental status: baseline Post-Op hydration status: normal Vital Signs: Last Vital Signs Temp 36.2 C L 12/17/23 08:00 Pulse 83 12/17/23 08:00 Resp 16 12/17/23 08:00 BP 112/62 12/17/23 08:00 Pulse Ox 95 12/17/23 08:00 O2 Del Method Room Air 12/17/23 07:51 O2 Flow Rate 8 12/16/23 15:00 Pain Score (VAS): 08/17 I/O: Intake & Output 12/16/23 12/17/23 12/17/23 23:59 07:59 15:59 Intake Total 434.5 425 240 Balance 434.5 425 240 Laboratory Tests 12/17/23 05:34 12/17/23 05:34 12/16/23 12/17/23 12:06 05:34 WBC 12.7 H RBC 3.35 L Hgb 10.2 L Hct 31.2 L MCV 93.1 MCH 30.4 MCHC 32.7 RDW 13.1 Plt Count 282 MPV 9.0 Immature Gran % (Auto) 0.5 Neut % (Auto) 80.3 H Lymph % (Auto) 10.0 L [place] % (Auto) 8.9 H Eos % (Auto) 0.1 Baso % (Auto) 0.2 Lymph # (Auto) 1.26 [place] # (Auto) 1.1 H Eos # (Auto) 0.0 Baso # (Auto) 0.0 Abs Immat Gran (auto) 0.06 H Absolute Neuts (auto) 10.2 H Absolute Nucleated RBC 0.000 Nucleated RBC % 0.0 Sodium 139 Potassium 3.8 Chloride 108 H Carbon Dioxide 22 Anion Gap 9 BUN 17 Creatinine 1.00 Estim Creat Clear Calc Not Reportable Estimated GFR 54 L Glucose 116 H Calcium 8.6 Blood Type B Positive Antibody Screen Negative Post-procedural complaints: none Patient Feedback: Patient satisfied with anesthetic care.
[2023-12-17 12:00] VITALS: BP 123/74; PULSE 76; RESP 18; TEMP 36.2; O2SAT 97
--- NOTE | 2023-12-17 13:13 | PM.DS ---
DS: Admitting Diagnosis Discharge Date 12/17/23 Admitting Diagnosis Glenohumeral joint arthritis. DS: Discharge Diagnosis Discharge Diagnosis (1) DJD of right shoulder: Qualifiers: Osteoarthritis type: primary Qualified Code(s): M19.011 - Primary osteoarthritis, right shoulder Code(s): M19.011 - Primary osteoarthritis, right shoulder Status: Acute Plan Postop day 1: Anatomic total shoulder. Patient tolerated procedure well. No complications. Pain manageable with pain medication. No numbness or tingling. We had a lengthy discussion regarding postoperative wound care, limitations, expectations, and exercises. Patient shows good understanding. She has had initial physical therapy and is tolerating it well. DVT prophylaxis: 81 mg baby aspirin b.i.d. for 14 days. Pain medication: Ibuprofen and Tylenol. Patient has followup appointment with Dr. Lane in 3 weeks. DS: Summary Hospital Course Hospital Course: Right anatomic total shoulder arthroplasty. No complications. Patient has had initial physical therapy and occupational therapy. Status at Discharge Functional status at discharge: independent ambulation Overall status at discharge: patient is progressing back to baseline Time Spent with Patient Time attestation: Total time spent providing and/or coordinating discharge services: Exam Narrative: Normal weight 73 y/o Female. Alert and oriented x3. No acute distress. Resting comfortably in chair. Wearing sling. Dressing dry and intact with no drainage. Moderate swelling. Moderate ecchymosis. No erythema. Range of motion limited due to pain. Good finger, wrist, elbow range of motion. Neurologic status intact. Light touch sensation intact. Normal capillary refill. No varicosities. Distal pulses palpable. DS: Data Data Completed and Pending Labs on day of discharge: Labs from last 24 hours 12/17/23 05:34 WBC 12.7 H RBC 3.35 L Hgb 10.2 L Hct 31.2 L MCV 93.1 MCH 30.4 MCHC 32.7 RDW 13.1 Plt Count 282 MPV 9.0 Immature Gran % (Auto) 0.5 Neut % (Auto) 80.3 H Lymph % (Auto) 10.0 L [place] % (Auto) 8.9 H Eos % (Auto) 0.1 Baso % (Auto) 0.2 Lymph # (Auto) 1.26 [place] # (Auto) 1.1 H Eos # (Auto) 0.0 Baso # (Auto) 0.0 Abs Immat Gran (auto) 0.06 H Absolute Neuts (auto) 10.2 H Absolute Nucleated RBC 0.000 Nucleated RBC % 0.0 Sodium 139 Potassium 3.8 Chloride 108 H Carbon Dioxide 22 Anion Gap 9 BUN 17 Creatinine 1.00 Estim Creat Clear Calc Not Reportable Estimated GFR 54 L Glucose 116 H Calcium 8.6 Discharge Plan Discharge Patient Disposition: Home, Self-Care Discharge Instructions: See green instruction sheets Stand Alone Forms: General Discharge Instructions Follow-up/Referrals: Amanda Ahn PA [Physician Powerhouse Mechanic Helper] - Discharge Medications: New aspirin 81 mg tablet,delayed release (DR/EC) 81 mg PO BID 14 Days Qty: 28 0RF Continued (DME) BreatheR[employer] Spacer-Mask,Adult Spacer See Rx Instructions .Route Qty: 1 0RF Rx Instructions: As directed cholecalciferol (vitamin D3) 50 mcg (2,000 unit) tablet 2,000 unit PO DAILY alendronate 70 mg tablet See Rx Instructions .ROUTE .COMPLEX Qty: 12 2RF Dose Instruction: TAKE 1 TABLET BY MOUTH WEEKLY Patient Comments: TAKES 1/2 TAB ON SUNDAYS Rx Instructions: TAKE 1 TABLET BY MOUTH WEEKLY amlodipine 5 mg tablet See Rx Instructions .ROUTE .COMPLEX Qty: 90 2RF Dose Instruction: TAKE 1 TABLET BY MOUTH DAILY Rx Instructions: TAKE 1 TABLET BY MOUTH DAILY albuterol sulfate 90 mcg/actuation HFA aerosol inhaler See Rx Instructions .ROUTE .COMPLEX Qty: 8.5 2RF Dose Instruction: INHALE 1 PUFF EVERY 4 HOURS NEEDED FOR SHORTNESS OF BREATH OR WHEEZING Rx Instructions: INHALE 1 PUFF EVERY 4 HOURS NEEDED FOR SHORTNESS OF BREATH OR WHEEZING calcium 600 mg Capsule
== END 2023-12-17 14:55 | disposition home or self-care (01) ==
LOC: ANHSURGERY 11:38 → ANH3MEDSUR 16:05
PROVIDERS: Physician Assistant Surgical; PCP Emergency Medicine; Visit Provider Orthopaedic Surgery
PROC: (CPT 23472; principal; 2023-12-16 12:00)
DX: M19.011 Primary osteoarthritis, right shoulder (principal); M85.421 Solitary bone cyst, right humerus; G89.18 Other acute postprocedural pain; E78.00 Pure hypercholesterolemia, unspecified; I10 Essential (primary) hypertension; K21.9 Gastro-esophageal reflux disease without esophagitis; M81.0 Age-related osteoporosis without current pathological fracture; Z79.51 Long term (current) use of inhaled steroids; Z79.82 Long term (current) use of aspirin
CPT/HCPCS: 23472; 23155; 64415; 36415; 73030; 80048; 85025; 86850; 86900; 86901; 97110; 97161; 97165; 97530; 97535; A4565; A9270; C1713; J0171; J0690; J1100; J1885; J2250; J2371; J2405; J2704; J2795; J3370; J7030; J7120

== ENCOUNTER 2024-02-03 10:41 | Outpatient (CLI) | payer OTHER, SELFPAY ==
--- NOTE | ~2024-02-03 | XR_ITS ---
Right Shoulder Technique: AP and scapular Y views were obtained. Clinical History: Arthroplasty COMPARISON: 12/16/2023 Findings: No fracture or dislocation is seen. Right shoulder arthroplasty is unchanged.. Soft tissues are unremarkable. Impression: Stable right shoulder arthroplasty. No acute abnormality. Reviewed, dictated and finalized at location . Impression: Stable right shoulder arthroplasty. No acute abnormality.
== END 2024-02-03 10:42 | disposition home or self-care (01) ==
PROVIDERS: PCP Emergency Medicine; Visit Provider Orthopaedic Surgery
DX: Z96.611 Presence of right artificial shoulder joint (principal)
CPT/HCPCS: 73030

== ENCOUNTER 2024-06-04 11:42 | Emergency (ER) | payer OTHER, SELFPAY ==
[2024-06-04 12:19] VITALS: BP 133/85; PULSE 97; RESP 16; TEMP 36.9; O2SAT 97
--- NOTE | 2024-06-04 12:53 | ED.URI ---
HPI - URI/Sore Throat General Chief Complaint: Upper Respiratory Infection Stated Complaint: Sinus, Sore Throat Time Seen by Provider: 06/04/24 12:50 Source: patient Mode of arrival: ambulatory Limitations: no limitations History of Present Illness HPI Narrative: Panel is a 73-year-old female patient presenting to the clinic today with complaints of sinus pressure, nasal congestion, and sore throat for the past 2-3 days. No known fever, chills, or body aches. Denies any chest pain or shortness of breath. MD elicited complaint: sore throat and nasal congestion Related Data Home Medications ?Medication ?Instructions ?Recorded ?Confirmed ?Last Taken ?Type cholecalciferol (vitamin D3) 50 2,000 unit PO DAILY 07/20/19 05/25/24 12/09/23 History mcg (2,000 unit) tablet acetaminophen 650 mg 650 mg PO Q12H PRN Pain 11/20/23 05/25/24 12/15/23 History tablet,extended release (Tylenol Arthritis Pain) calcium 600 mg capsule 600 mg PO DAILY 11/20/23 05/25/24 12/09/23 History [id number]-Ca carb-vit K 1 tablet PO DAILY 11/20/23 05/25/24 12/09/23 History 18 mg iron-400 mcg-500 mg tablet (Women's One Daily) red yeast rice 600 mg capsule 600 mg PO DAILY 11/20/23 05/25/24 12/09/23 History vitamin E 400 unit tablet 400 mg PO DAILY 11/20/23 05/25/24 12/09/23 History Allergies Allergy/AdvReac Type Severity Reaction Status Date / Time codeine Allergy Severe Nausea and Verified 05/25/24 10:53 Vomiting iodine Allergy Unknown Other Verified 05/25/24 10:53 Review of Systems Review of Systems: Pertinent positives per HPI. Patient denies any fever, chills, rash, headache, visual changes, dizziness, cough, shortness of breath, chest pain, palpitations, nausea, vomiting, diarrhea, constipation, abdominal pain, or any urinary issues. FOR[facility]LY [facility] Past Medical History Medical History Subconjunctival hemorrhage Upper respiratory tract infection Rib pain on left side Elevated cholesterol Pain of right calf Leg pain Knee pain Acquired stenosis of external ear canal, bilateral Acute pain of left hip Benign paroxysmal positional vertigo due to bilateral vestibular disorder Body mass index [BMI] 26.0-26.9, adult (03/25/17) Dental abscess Excessive cerumen in both ear canals GERD without esophagitis Hyperglycemia Unspecified injury of right wrist, hand and finger(s), initial encounter Lung granuloma Post-menopause Pulmonary nodule Rash Tachycardia, paroxysmal Wrist pain, left Yeast infection Shoulder pain URI with cough and congestion Hypertension HLD (hyperlipidemia) Osteoporosis Surgical History Surgical History Status post total replacement of right shoulder (~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) Anatomic H/O tubal ligation History of colon resection 6 inches colon removed with appendectomy History of appendectomy H/O cataract removal with insertion of prosthetic lens bilateral Family History Family History Mother Family history of chronic obstructive pulmonary disease, Onset Age: 87 Family history of dementia, Onset Age: 87 Sibling Family history of chronic obstructive pulmonary disease Social History Social History Smoking status: Never smoker Alcohol intake: never Substance use: never Substance use type: does not use Do You Feel Safe in your Home?: Yes Lack of Transportation: No Lack of Food: Never True Current Housing: I Have Housing Concerned About Future Housing: No Difficulty Paying Gas/Electric Bills: No Difficulty Paying for Meds: No Currently Unemployed: No Education: High School Diploma/GED Difficulty w/ Childcare or Family Care: No Living arrangements: alone Occupation/Education: retired Spiritual care concerns: No Comments At the time of my signature, I reviewed and agree with the nursing past medical, surgical, social, and family history. There is no relevant family history pertinent to the patient complaint. Exam Narrative: General: Well-developed, well nourished, in no apparent distress Head: Normocephalic, atraumatic Eyes: Pupils equally round and reactive to light bilaterally, EOM intact, sclera and conjunctive clear, no discharge, lids normal Ears: TMs intact and congested, ear canals clear, no drainage, grossly hearing normal. Nose: Nares patent, clear nasal discharge, moderate inflammation, maxillary sinus tenderness. Mouth: Oral pharynx without lesions or masses, good dentition, MMM. Postnasal drip Neck: Supple, trachea midline, no enlargement of anterior or posterior cervical nodes, no thyroid masses or goiter palpable. Cardio: Regular rate and rhythm, s1 and s2 normal, no murmur appreciated. Resp: Clear to auscultation bilaterally, no rhonchi, rales, wheezing or rubs Course Course Emergency Course: Portions of this record may have been created with voice recognition software. Level of Care: Express Care Visit Vital Signs Vital signs: Vital Signs Temperature 36.9 C 06/04/24 12:19 Pulse Rate 97 06/04/24 12:19 Respiratory Rate 16 06/04/24 12:19 Blood Pressure 133/85 06/04/24 12:19 Pulse Oximetry 97 06/04/24 12:19 Temperature 36.9 C 06/04/24 12:19 Pulse Rate 97 06/04/24 12:19 Respiratory Rate 16 06/04/24 12:19 Blood Pressure 133/85 06/04/24 12:19 Pulse Oximetry 97 06/04/24 12:19 Vital signs reviewed MDM - URI/Sore Throat MDM Narrative Medical decision making narrative: At the time of visit patient is resting comfortably on the exam table. Patient appears to be nontoxic. Labs: COVID and influenza testing was negative in the clinic today. Plan: I suspect patient has an upper respiratory infection/sinusitis. Will place patient on prednisone. Supportive measures were discussed with the patient and they voiced understanding discharge instructions and agrees to treatment plan. Return precautions reviewed Differential Diagnosis Differential diagnosis: Likely upper respiratory infection, otitis media, sinusitis, viral infection, bronchitis, influenza, pharyngitis and other (COVID) Discharge Plan Discharge Clinical Impression: Upper respiratory infection Qualifiers: URI type: unspecified URI Qualified Code(s): J06.9 - Acute upper respiratory infection, unspecified Patient Disposition: Home, Self-Care Condition: Stable Instructions: Antibiotic Form, Cold Symptoms (ED) Additional Instructions: COVID and influenza testing was negative. No sign of bacterial infection in the clinic today. Take prescription medications only as prescribed-prednisone Increase fluids and stay well hydrated Tylenol/motrin for pain/fever Flonase and OTC antihistamines as directed Vicks vapor rub to open sinuses Sinus rinses for congestion Cepacol spray, cough drops, throat lozenges, warm tea with honey/lemon, gargle salt water to soothe throat BRAT diet for diarrhea Clear liquids x 24 hours then advance as tolerated for nausea/vomiting Go to the ED if you develop a worsening in your condition- high fever not controlled by Tylenol or Motrin, dehydration, weakness, lethargy, shortness of breath, or chest pain. Follow up with your PCP in 3-5 days if symptoms persist. Patient Language: Syrian Prescriptions: New prednisone 20 mg tablet 40 mg PO DAILY 5 Days Qty: 10 0RF No Action cholecalciferol (vitamin D3) 50 mcg (2,000 unit) tablet 2,000 unit PO DAILY amlodipine 5 mg tablet See Rx Instructions .ROUTE .COMPLEX Qty: 90 2RF Dose Instruction: TAKE 1 TABLET BY MOUTH DAILY Rx Instructions: TAKE 1 TABLET BY MOUTH DAILY benzonatate 100 mg capsule 100 mg PO TID Qty: 20 0RF calcium 600 mg Capsule 600 mg PO DAILY Women's One Daily 18 mg iron-400 mcg-500 mg Tablet 1 tablet PO DAILY vitamin E 400 unit Tablet 400 mg PO DAILY acetaminophen [Tylenol Arthritis Pain] 650 mg Tablet Extended Release 650 mg PO Q12H PRN (Reason: Pain) red yeast rice 600 mg Capsule 600 mg PO DAILY pantoprazole 40 mg tablet,delayed release (DR/EC) See Rx Instructions .ROUTE .COMPLEX Qty: 90 3RF Dose Instruction: TAKE 1 TABLET BY MOUTH DAILY Rx Instructions: TAKE 1 TABLET BY MOUTH DAILY losartan 100 mg tablet See Rx Instructions .ROUTE .COMPLEX Qty: 90 3RF Dose Instruction: TAKE 1 TABLET BY MOUTH DAILY Rx Instructions: TAKE 1 TABLET BY MOUTH DAILY alendronate 70 mg tablet See Rx Instructions .ROUTE .COMPLEX Qty: 12 2RF Dose Instruction: TAKE 1 TABLET BY MOUTH ONE TIME PER WEEK Rx Instructions: TAKE 1 TABLET BY MOUTH ONE TIME PER WEEK Follow-up/Referrals: Magdi Grady MD [Primary Care Provider] - Time of Disposition: 13:22 Quality NIHSS Nursing Documentation ED NIHSS nursing documentation: reviewed/agree
[2024-06-04 13:09] LABS: EDCOVIDSCREEN Negative (Negative); EDINFLUASCREEN Negative (Negative); EDINFLUBSCREEN Negative (Negative)
== END 2024-06-04 13:29 | disposition home or self-care (01) ==
PROVIDERS: Emergency Provider Nurse Practitioner Family; PCP Emergency Medicine
DX: J06.9 Acute upper respiratory infection, unspecified (principal); I10 Essential (primary) hypertension; M81.0 Age-related osteoporosis without current pathological fracture; K21.9 Gastro-esophageal reflux disease without esophagitis; Z20.822 Contact with and (suspected) exposure to COVID-19
CPT/HCPCS: 87426; 87804; 99213; G0463

== ENCOUNTER 2024-08-13 21:55 | Emergency (ER) | payer OTHER, SELFPAY ==
--- NOTE | ~2024-08-13 | XR_ITS ---
EXAMINATION: XR foot LT min 3V DATE: 08/14/2024 02:14 INDICATION: Left foot pain. TECHNIQUE: 4 views of left foot were obtained. COMPARISON: None. FINDINGS: Alignment is normal. No fracture. There is mild osteoarthritis of first metatarsophalangeal joint and some of the interphalangeal joints and midfoot joints. There are enthesophytes at the post erior and plantar aspects of calcaneal tuberosity. IMPRESSION: 1. Polyarticular osteoarthritis. Reviewed, dictated and finalized at location A. OTYPE DEICER ASSEMBLER
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
[2024-08-13 21:56] VITALS: BP 165/75; PULSE 99; RESP 14; TEMP 36.6; O2SAT 99
--- NOTE | 2024-08-13 22:36 | ECG_ITS ---
Test Date: 2024-08-13 22:54:02 Measurements Intervals [place] Rate: 89 P: 67 WA: 138 QRS: 23 QRSD: 91 T: 52 QT: 361 QTc: 441 Interpretive Statements SINUS RHYTHM INCOMPLETE RIGHT BUNDLE BRANCH BLOCK Compared to ECG 11/20/2023 11:15:45 No significant changes Electronically Signed On 08-14-2024 16:25:52 SURFACE PLATE FINISHER by Victorino Alvarenga M.D.
[2024-08-13 23:01] LABS: Basophils Percent Auto 0.4 % (0.2-1.2); Eosinophils Absolute Auto 0.1 K/mm3 (0-0.3); Hematocrit 37.4 % (37.0-47.0); Hemoglobin 12.4 g/dL (12.0-15.0); Immature Granulocyte Absolute 0.06 K/mm3 (0.00-0.031); Immature Granulocyte Percent A 0.5 % (0-0.5); Lymphocytes Absolute Auto 1.99 K/mm3 (0.9-3.2); Mean Corpuscular HGB Conc 33.2 g/dl (32-36); Mean Corpuscular Hemoglobin 30.5 pg (26-34); Mean Corpuscular Volume 91.9 fl (80-100); Mean Platelet Volume 8.8 fl (7.4-10.4); Monocytes Absolute Auto 0.7 K/mm3 (0.1-0.6); Monocytes Percent Auto 6.1 % (2.6-8.5); Neutrophils Absolute Auto 8.2 K/mm3 (1.3-6.7); Platelet Count Result 336 k/mm3 (150-375); Red Blood Count 4.07 M/mm3 (4.2-5.4); Red Cell Distribution Width 13.6 % (11.5-14.5); White Blood Count 11.1 K/mm3 (4.5-10.0)
[2024-08-13 23:12] LABS: Prothrombin Time 12.9 Seconds (11.1-14.7)
[2024-08-13 23:13] LABS: Partial Thromboplastin Time 24.5 Seconds (22.3-36.8)
[2024-08-13 23:14] LABS: Alanine Aminotransferase 20 U/L (6-35); Albumin Level 4.2 g/dL (3.5-5.1); Alkaline Phosphatase 86 U/L (38-126); Anion Gap 10 mmol/L (4-12); Aspartate Amino Transferase 25 U/L (14-36); Bilirubin,Total 0.5 mg/dL (0.2-1.3); Blood Urea Nitrogen 13 mg/dL (7-17); Calcium 9.6 mg/dL (8.4-10.2); Carbon Dioxide 24 mmol/L (22-30); Chloride 106 mmol/L (98-107); Estimated Glomerular Filt Rate 59; Glucose 120 mg/dL (65-110); Lipase 98 U/L (23-300); Potassium 3.7 mmol/L (3.4-5.0); Sodium 140 mmol/L (137-145)
[2024-08-13 23:26] LABS: Troponin I < 0.012 ng/mL (0.000-0.034)
--- NOTE | 2024-08-14 01:24 | ECG_ITS ---
Test Date: 2024-08-14 02:40:24 Measurements Intervals [place] Rate: 84 P: 56 RI: 143 QRS: 13 QRSD: 93 T: 43 QT: 366 QTc: 435 Interpretive Statements SINUS RHYTHM INCOMPLETE RIGHT BUNDLE BRANCH BLOCK Compared to ECG 08/13/2024 22:54:02 NO SIGNIFICANT CHANGES Electronically Signed On 08-14-2024 16:26:44 HEAD OF ICT by Victorino Alvarenga M.D.
[2024-08-14 01:55] LABS: Troponin I < 0.012 ng/mL (0.000-0.034)
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
[2024-08-14 03:15] VITALS: BP 153/73; PULSE 92; RESP 16; O2SAT 97
== END 2024-08-14 04:12 | disposition short-term general hospital (02) ==
PROVIDERS: Emergency Provider Emergency Medicine; PCP Emergency Medicine
DX: S22.20XA Unspecified fracture of sternum, initial encounter for closed fracture (principal); S92.342A Displaced fracture of fourth metatarsal bone, left foot, initial encounter for closed fracture; S22.32XA Fracture of one rib, left side, initial encounter for closed fracture; K21.9 Gastro-esophageal reflux disease without esophagitis; E78.5 Hyperlipidemia, unspecified; I10 Essential (primary) hypertension; M81.0 Age-related osteoporosis without current pathological fracture; Z96.611 Presence of right artificial shoulder joint; Z90.49 Acquired absence of other specified parts of digestive tract; Z96.1 Presence of intraocular lens; Z98.42 Cataract extraction status, left eye; Z98.41 Cataract extraction status, right eye; K44.9 Diaphragmatic hernia without obstruction or gangrene; M19.072 Primary osteoarthritis, left ankle and foot; M47.812 Spondylosis without myelopathy or radiculopathy, cervical region; I45.10 Unspecified right bundle-branch block; Z79.899 Other long term (current) drug therapy; V49.40XA Driver injured in collision with unspecified motor vehicles in traffic accident, initial encounter
CPT/HCPCS: 36415; 70450; 71046; 71250; 72125; 73630; 74176; 80053; 83690; 84484; 85025; 85610; 85730; 93005; 99285

== ENCOUNTER 2025-01-12 10:55 | Emergency (ER) | payer OTHER, SELFPAY ==
--- NOTE | ~2025-01-12 | XR_ITS ---
XR chest 2V 01/12/2025 11:55 Indication: Cough and congestion for 4 days Procedure: 2 view chest Comparison: 08/13/2024 Findings: There is left lower lobe airspace disease, compatible with pneumonia. Small hiatal hernia. No significant effusion. Right lung clear. No pneumothorax. No acute osseous abnormality. Impression: 1: Left lower lobe pneumonia. Reviewed, dictated and finalized at location A. Impression: 1: Left lower lobe pneumonia.
[2025-01-12 11:05] VITALS: BP 142/80; PULSE 99; RESP 23; TEMP 37.3; O2SAT 95
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
== END 2025-01-12 12:34 | disposition home or self-care (01) ==
PROVIDERS: PCP Emergency Medicine
DX: J18.9 Pneumonia, unspecified organism (principal); I10 Essential (primary) hypertension; E78.5 Hyperlipidemia, unspecified; M81.0 Age-related osteoporosis without current pathological fracture; K21.9 Gastro-esophageal reflux disease without esophagitis
CPT/HCPCS: 71046; 99213; G0463